=== PATIENT | female | born 2000 | race Caucasian/White ===

== ENCOUNTER 2023-12-14 16:22 | Emergency (ER) | payer OTHER, SELFPAY ==
[2023-12-14 16:24] VITALS: BP 122/75
--- NOTE | 2023-12-14 17:26 | ED.GENMED ---
History of Present Illness
General
Chief Complaint: Cough
Source: patient
Exam Limitations: none
Time Seen by Provider: 12/14/23 17:25
Nursing documentation reviewed up to this point in time: agreed with
Travel History
Have you had any contact with someone who has COVID-19?: No
Do you have any symptoms of coronavirus? Fever > 100 degrees, chills, cough, shortness of breath, sore throat, loss of taste or smell, muscle aches, or headache?: No
History of Present Illness
History of Present Illness:
23-year female presents today complaining of cough for the past 4 weeks. She reports a month ago she had COVID and pneumonia and since then the cough really never went away. In fact it has gotten worse in the past couple days she has not been able
to sleep due to cough. She reports she has had fevers recently. She does not smoke. She has not been evaluated recently for this cough.
Past History
Past History
ED Past Medical History: Psychiatric
ED Past Surgical History: None
Social History
Tobacco: Non-smoker
Alcohol: Occasional
Drug: None
Personal: Single
Living: with family
Review of Systems
Review of Systems
Allergies reviewed?: Yes
Other source history: family
All Other Systems: ROS reviewed and negative except as documented in HPI and ROS
Constitutional: Reports fever; Denies fatigue or chills
EENT: Reports no symptoms
Phy Exam
General Physical Exam
General Presentation: no apparent distress
General age: appears stated age
General Skin: warm and dry
General Habitus: normal
General Mental: alert
General Hydration: appears well hydrated
Cardiovascular Exam
Cardiovascular Exam: regular rate/rhythm, no murmur and normal peripheral pulses
Pulmonary Exam
Pulmonary Exam: lungs clear, no respiratory distress and other (+ cough slight wheeze with cough )
Neurological Exam
Neurological Exam: alert and oriented x3
Musculoskeletal Exam
Musculoskeletal Exam: full ROM
Skin Exam
Skin Exam: normal color and warm/dry
Psychiatric Exam
Psychiatric Exam: normal mood/affect
Course
Orders/Labs/Results
Orders:
Orders
12/14/23 17:48
Chest [CR Chest - 2 Views ] Urgent
Comment:
Reason For Exam: cough/fever
12/14/23 17:49
Dexamethasone Pf [Decadron] 10 mg PO NOW STA
12/14/23 18:00
COVID-19 Antigen Urgent
Source: Nasal Swab
Influenza A+B Rapid Molecular Urgent
JORDAN Source: Nasal Swab
Specimen Description:
12/14/23 18:11
Albuterol Nebs [Ventolin Nebules] 2.5 mg INH R NOW STA
Vital Signs
Initial and Last Documented VS:
Initial Vital Signs
Temp Pulse Resp BP Pulse Ox
98.6 F 89 18 122/75 100
12/14/23 16:24 12/14/23 16:24 12/14/23 16:24 12/14/23 16:24 12/14/23 16:24
Last Documented Vital Signs
Temp Pulse Resp BP Pulse Ox
98.6 F 89 18 122/75 100
12/14/23 16:24 12/14/23 16:24 12/14/23 16:24 12/14/23 16:24 12/14/23 16:24
MDM/Problems Addressed
Differential Diagnosis Includes:
Not limited to bronchitis COVID influenza pneumonia
MDM/Problems Addressed:
Patient is a 23-year-old female who presents to the ER complaining of cough for the past 4 weeks. Patient is not a smoker. Patient does not have a history of asthma. She has an obvious cough on exam scattered rhonchi however not hypoxic. Patient
is afebrile negative COVID-negative flu x-ray does show mild pneumonia in the left upper lobe not
Will treat for pneumonia with amoxicillin 1 g 3 times a day plus Zithromax. Will also give prescription for Tessalon Perles and inhaler.
*Radiology
Radiology exam reviewed: radiology read reviewed
*Pulse Oximetry
Patient hypoxic: no
*Critical Care Note
Total Time (30-74mins, 75-104mins- exclusive of procedures): Not Applicable
ED Attending Note
-
Portions of this chart may have been created with voice recognition software.� Occasional wrong word or��sound alike� substitutions may have occurred due to the inherent limitations of voice recognition software.
Discharge Plan
Departure
Patient Disposition: Home (Routine Discharge)
Date of Disposition: 12/14/23
Time of Disposition: 19:40
Patient with high blood pressure during this ER visit?: No
Condition: Fair
Covid-19: Not Applicable
Discharge Problem:
Pneumonia
Instructions: Pneumonia, Adult (DC)
Prescriptions:
New
amoxicillin 500 mg capsule
1,000 mg PO TID Qty: 42 0RF
azithromycin [Zithromax] 250 mg tablet
250 mg PO DAILY Qty: 4 0RF
Proair Digihaler 90 mcg/actuation aero powdr breath act w/sensor
90 mcg inhalation Q6H PRN (Reason: shortness of breath or wheezing) Qty: 1 0RF
benzonatate 200 mg capsule
200 mg PO TID PRN (Reason: Cough) Qty: 6 0RF
No Action
quetiapine [Seroquel] 400 mg Tablet
300 mg PO Daily
ibuprofen 600 mg Tablet
600 mg PO Q4HPRN PRN (Reason: moderate pain/cramps) Qty: 0 0RF
Referrals:
[facility] [Provider Group]
[facility] [Outside]
NONE,* [Family Provider] -
Activity Restrictions/Additional Instructions:
As discussed you have pneumonia and has been given 2 antibiotics take as directed. you were given the first dose here in the ER of both medications. Zithromax is only to be taken for the next 4 days and amoxicillin for the next 7 days. You
were also given a prescription for cough medicine and inhaler. These medications were sent to your pharmacy.
Follow-up with family practice clinic in the next several days for reevaluation return if any worsening of including shortness of breath.
Interventions
Interventions:
*Risk Screen - Suicide Last Done: 12/14/23 16:24
*General Assessment Last Done: 12/14/23 16:24
*Neglect/Abuse Screening Last Done: 12/14/23 16:24
*ED COVID-19 Vaccine History Last Done: 12/14/23 16:24
ED- Pulmonary Assessment Last Done: 12/14/23 17:40
Discharge Date and Time
Print Language: [place] CITIZ[place]
[2023-12-14] MEDS: DECADRON 10 MG PO (18:01)
[2023-12-14 18:30] LABS: COVID-19 Antigen Negative (Negative)
[2023-12-14] MEDS: VENTOLIN NEBULES 2.5 MG INH (18:39)
[2023-12-14] MEDS: AMOXIL 1000 MG PO (19:43)
[2023-12-14] MEDS: DUONEB 3 ML INH (19:43)
[2023-12-14] MEDS: TESSALON PERLES 200 MG PO (19:43)
[2023-12-14] MEDS: ZITHROMAX 500 MG PO (19:43)
== END 2023-12-14 20:18 | disposition home or self-care (01) ==
LOC: EMR 16:22
PROVIDERS: Nurse Practitioner; EMERGENCY PHYSICIAN Emergency Medicine
DX: J18.9 Pneumonia, unspecified organism (principal)
CPT/HCPCS: 99284; 94640; 71046; 87502; 87811

== ENCOUNTER 2024-11-11 09:34 | Emergency (ER) | payer OTHER, SELFPAY ==
[2024-11-11 09:40] VITALS: BMI 32.9
[2024-11-11 09:41] VITALS: BP 141/93
[2024-11-11 09:56] LABS: % Basophils 0.8 % (0-2); % Eosinophils 0.5 % (0-6); % Immature Granulocytes 0.1 % (0-0.5); % Lymphocytes 26.4 % (20.5-51.1); % Neutrophils 68.2 % (42.2-75.2); Absolute Basophils 0.1 10^3/uL (0-0.2); Absolute Monocytes 0.3 10^3/uL (0.1-0.6); Absolute Neutrophils 5.1 10^3/uL (1.4-6.5); Hematocrit 39.2 % (37.0-47.0); Hemoglobin 13.4 g/dL (12.0-16.0); Mean Corp Hgb Conc. 34.2 g/dL (33.0-37.0); Mean Corpuscular Hgb 29.6 pg (27.0-31.0); Mean Corpuscular Volume 86.7 fL (81.0-99.0); Mean Platelet Volume 8.6 fL (7.4-10.4); Nucleated Red Blood Cells % 0 %; Platelet Count 320 10^3/uL (130-400); Red Blood Cell Count 4.52 10^6/uL (4.20-5.40); Red Cell Dist. Width 13.1 % (11.5-14.5); White Blood Cell Count 7.4 10^3/uL (4.8-10.8)
[2024-11-11 10:00] VITALS: BP 133/109
[2024-11-11 10:05] LABS: HCG, Serum Qualitative Screen Negative
--- NOTE | 2024-11-11 10:05 | ED.GENMED ---
History of Present Illness
General
Chief Complaint: Chest Pain
Time Seen by Provider: 11/11/24 09:55
History of Present Illness
History of Present Illness:
Patient is a 24-year-old female presenting to the emergency department with chest pain. Patient states that 2 weeks ago she did not get her period. A few days ago started develop some vaginal bleeding and spotting. She thought it was a
miscarriage. The bleeding has slowed down. 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 She was working in the room when she became lightheaded and dizzy. Developed some chest pain. Coworkers laid her down and she did go in and out of
consciousness. No jerking of her extremities or urinary incontinence. She does state that when that was happening she was getting leg pain. That has since resolved. She does state that she has residual chest pain that is pleuritic. She is
unsure as to why she had a miscarriage. She does state that there is family history of blood clots. She has never had a coagulable workup completed.
Past History
Past History
ED Past Medical History: Psychiatric
ED Past Surgical History: None
Social History
Tobacco: Non-smoker
Alcohol: Occasional
Drug: None
Personal: Single
Living: with family
Phy Exam
Physical Exam
Physical Exam:
GENERAL: in no acute distress
HEENT: normocephalic, extraocular movements intact, moist oral mucosa
NECK: normal inspection
RESPIRATORY: no respiratory distress, clear to auscultation bilaterally
CARDIOVASCULAR: regular rate and rhythm
ABDOMEN/: soft, non-distended, non-tender to palpation, no rebound or guarding
EXTREMITIES: non-tender, no edema/swelling
NEUROLOGIC: awake and alert, moves all extremities, no gross motor or sensory deficits
SKIN: warm
Scores
Heart Score for Chest Pain Patients
STEMI patient?: No
History: Slightly or Non-Suspicious
ECG: Normal
Age: </= 45 years
Risk Factors: No Risk Factors
Troponin: </= Normal Limit
Heart Score for Chest Pain Patients: 0
Heart Score Risk: 2.5% MACE over next 6 weeks
Course
Orders/Labs/Results
Orders:
Orders
11/11/24 09:35
ECG [Electrocardiogram (*1)] Urgent
Reason for Study: Chest Pain
EKG- Treatment ONCE
11/11/24 09:36
Test Result ONCE
11/11/24 09:44
Complete Blood Count/With Diff Urgent
Comprehensive Metabolic Panel Urgent
HCG, Serum Qualitative Screen Urgent
Troponin I Urgent
11/11/24 10:04
US Pelvis W Transvag Combined Urgent
Comment:
Reason For Exam: recent miscarriage, vag spotting
11/11/24 10:05
CT Chest PE Study Urgent
Comment:
Reason For Exam: syncope, pleuritic cp
11/11/24 10:09
0.9% Sodium Chloride 1000 ml [Nss] 1,000 ml IV BOLUS
Abnormal Lab Results
11/11/24
09:44
Chloride 111 H mmol/L
(98-107)
Carbon Dioxide 21 L mmol/L
(22-30)
Glucose 101 H mg/dl
(70-99)
11/11/24 09:44
11/11/24 09:44
Vital Signs
Initial and Last Documented VS:
Initial Vital Signs
Pulse Resp Pulse Ox
84 16 100
11/11/24 09:37 11/11/24 09:37 11/11/24 09:37
Last Documented Vital Signs
Pulse Resp BP Pulse Ox
73 16 134/89 100
11/11/24 14:00 11/11/24 14:00 11/11/24 14:00 11/11/24 14:00
MDM/Problems Addressed
Differential Diagnosis Includes:
Patient is a 24-year-old woman presenting to the emergency department with syncopal event, pleuritic chest pain and what sounds like recent miscarriage. Vitals unremarkable exam is reassuring. Concern for PE given patient's constellation of
symptoms. Could be related to the ongoing bleeding. History exam not consistent with cardiac arrhythmia. Will check blood work EKG CT PE. Will obtain pelvic ultrasound. Will give fluids.
*Critical Care Note
Total Time (30-74mins, 75-104mins- exclusive of procedures): Not Applicable
Update Note
Update Note:
On reevaluation patient resting comfortably. She does state that her symptoms have mostly resolved. Blood work does note a normal hemoglobin. She is not . Ultrasound negative. CT PE per my interpretation with no obvious pulmonary
embolus. Per the official read there is possible pneumonia pneumonitis or atelectasis in the posterior right lung. Patient without any signs or symptoms of pneumonia. Will hold off on any antibiotics.
On reevaluation patient feels much better after receiving the fluids and eating lunch. Will discharge at this time. Patient advised to follow-up with her [facility]
ED Attending Note
-
Portions of this chart may have been created with voice recognition software.� Occasional wrong word or��sound alike� substitutions may have occurred due to the inherent limitations of voice recognition software.
Discharge Plan
Departure
Patient Disposition: Home (Routine Discharge)
Date of Disposition: 11/11/24
Time of Disposition: 14:48
Patient with high blood pressure during this ER visit?: No
Discharge Problem:
Lightheaded
Instructions: Syncope (fainting) - Discharge instructions
Prescriptions:
No Action
quetiapine [Seroquel] 400 mg Tablet
300 mg PO Daily
ibuprofen 600 mg Tablet
600 mg PO Q4HPRN PRN (Reason: moderate pain/cramps) Qty: 0 0RF
amoxicillin 500 mg capsule
1,000 mg PO TID Qty: 42 0RF
azithromycin [Zithromax] 250 mg tablet
250 mg PO DAILY Qty: 4 0RF
Proair Digihaler 90 mcg/actuation aero powdr breath act w/sensor
90 mcg inhalation Q6H PRN (Reason: shortness of breath or wheezing) Qty: 1 0RF
benzonatate 200 mg capsule
200 mg PO TID PRN (Reason: Cough) Qty: 6 0RF
Referrals:
Ita Carlisle CRNP [Family Provider] -
Interventions
Interventions:
*Risk Screen - Suicide Last Done: 11/11/24 09:37
*General Assessment Last Done: 11/11/24 09:37
*Neglect/Abuse Screening Last Done: 11/11/24 09:37
*ED- Fall Risk Assessment Last Done: 11/11/24 09:37
*ED COVID-19 Vaccine History Last Done: 11/11/24 09:37
ED- Cardiac Assessment Last Done: 11/11/24 09:40
Discharge Date and Time
Print Language: [place]ONG[place]
[2024-11-11 10:09] LABS: ALT (SGPT) 14 U/L (0-35); AST (SGOT) 18 U/L (14-36); Albumin 3.9 g/dl (3.5-5.0); Alkaline Phosphatase 98 U/L (38-126); Blood Urea Nitrogen 13 mg/dl (7-17); Calcium 9.7 mg/dl (8.4-10.2); Carbon Dioxide 21 mmol/L (22-30); Estimated Creatinine Clearance > 125 ml/min; Glucose 101 mg/dl (70-99); Potassium 3.9 mmol/L (3.5-5.1); Sodium 139 mmol/L (135-145); Total Bilirubin 0.4 mg/dl (0.2-1.3); Total Protein 7.2 g/dl (6.3-8.2); eGFR > 60.00
[2024-11-11 10:20] LABS: Troponin I < 0.012 ng/ml
[2024-11-11] MEDS: NSS 1000 IV (10:53)
[2024-11-11 11:00] VITALS: BP 133/89
[2024-11-11 11:41] LABS: Chloride 111 mmol/L (98-107)
[2024-11-11 13:01] VITALS: BP 138/85
[2024-11-11 14:00] VITALS: BP 134/89
== END 2024-11-11 15:39 | disposition home or self-care (01) ==
LOC: EMR 09:34
PROVIDERS: EMERGENCY PHYSICIAN Student in an Organized Health Care Education/Training Program; FAMILY PHYSICIAN Nurse Practitioner Family
DX: R42 Dizziness and giddiness (principal); R07.81 Pleurodynia
CPT/HCPCS: 99285; 96360; 71275; 76830; 76856; 80053; 84484; 84703; 85025; 93005; Q9967